=== PATIENT | male | born 1975 | race Caucasian/White ===

== ENCOUNTER → 2017-07-01 | Outpatient (CLI) | payer MEDICARE, BC ==
--- NOTE | 2017-07-01 09:40 | RADIOLOGY REPORT (SQ) ---
EXAM DESCRIPTION: MRI CERVICAL SPINE WITHOUT COMPLETED DATE/TIME: 07/01/2017 8:46 am REASON FOR STUDY: M54.13 RADICULOPATHY, CERVICOTHORACIC REGION M54.13 RADICULOPATHY, CERVICOTHORACI C REGION COMPARISON: Cervical myelogram 02/21/2016 TECHNIQUE: Sagittal and Axial imaging includes T1, T2, STIR and gradient echo sequences. LIMITATIONS: None. FINDINGS: ALIGNMENT: Normal. VERTEBRAE: Intact. BONE MARROW: Normal. No marrow replacement or reactive changes. DISCS: Post fusion at C5-6 and C6-7 HARDWARE: Anterior fixation plate with anchoring screws in the C5, C6, and C7 vertebral bodies. CORD AND BASE OF BRAIN: Normal in size and signal intensity. SOFT TISSUES: No soft tissue masses. C1-C2: No significant spinal stenosis. C2-C3: No significant spinal stenosis or exit foraminal stenosis. C3-C4: No significant spinal stenosis or exit foraminal stenosis. C4-C5: No significant spinal stenosis or exit foraminal stenosis. C5-C6: No significant spinal stenosis or exit foraminal stenosis. C6-C7: Mild to moderate right foraminal narrowing from facet and uncovertebral hypertrophy. No centr al canal or left foraminal stenosis. C7-T1: No significant spinal stenosis or exit foraminal stenosis. UPPER THORACIC: Incompletely imaged. No significant spinal stenosis or exit foraminal stenosis. OTHER: No other significant finding. IMPRESSION: Post cervical fusion at C5-6 and C6-7. No significant central canal stenosis. Mild moderate right foraminal narrowing at C6-7. TECHNICAL DOCUMENTATION: JOB ID: [id number] [email or web address]- All Rights Reserved
== END ==
LOC: RAD 08:33
PROVIDERS: ATTEND Physician Assistant
DX: M54.13 Radiculopathy, cervicothoracic region (principal); M96.1 Postlaminectomy syndrome, not elsewhere classified
CPT/HCPCS: 72141

== ENCOUNTER → 2018-11-26 | Outpatient (CLI) | payer BC, MEDICARE ==
--- NOTE | 2018-11-26 08:47 | RADIOLOGY REPORT (SQ) ---
EXAM DESCRIPTION: MRI CERVICAL SPINE WITHOUT COMPLETED DATE/TIME: 11/26/2018 7:54 am REASON FOR STUDY: CERVICAL DISC DISORDER (M50.9), OTHER ABN FINDING ON MS SYSTEM M50.90 CERVICAL DI SC DISORDER, UNSP, UNSPECIFIED CERVICAL RE M48.00 SPINAL STENOSIS, SITE UNSPECIFIED R93.7 ABNORMAL FINDINGS ON DIAGNOSTIC IMAGING OF PRT MS SYS COMPARISON: 07/01/[address] cervical spine 02/21/2016 TECHNIQUE: Sagittal and Axial imaging includes T1, T2, STIR and gradient echo sequences. LIMITATIONS: None. FINDINGS: ALIGNMENT: Normal. VERTEBRAE: Intact. BONE MARROW: Normal. No marrow replacement or reactive changes. DISCS: Post fusion from C5 through C7. Decreased T2 weighted intervertebral disc signal at C2-3, C3- 4, and C4-5. HARDWARE: Post anterior fusion at C5-6 and C6-7 with hardware CORD AND BASE OF BRAIN: Normal in size and signal intensity. SOFT TISSUES: No soft tissue masses. C1-C2: No significant spinal stenosis. C2-C3: No significant spinal stenosis or exit foraminal stenosis. C3-C4: No significant spinal stenosis or exit foraminal stenosis. C4-C5: No significant spinal stenosis or exit foraminal stenosis. C5-C6: Post fusion. No central or foraminal stenosis. C6-C7: Post fusion. No central or foraminal stenosis. C7-T1: No significant spinal stenosis or exit foraminal stenosis. There is bilateral facet arthropat hy with mild bony spurring at the C7-T1 level. UPPER THORACIC: Incompletely imaged. No significant spinal stenosis or exit foraminal stenosis. OTHER: No other significant finding. IMPRESSION: No significant central or foraminal encroachment. TECHNICAL DOCUMENTATION: JOB ID: [id number]- All Rights Reserved Reading location - IP/workstation name: [email or web address]
== END ==
LOC: RAD 06:57
PROVIDERS: ATTEND Nurse Practitioner
DX: M50.30 Other cervical disc degeneration, unspecified cervical region (principal); M48.00 Spinal stenosis, site unspecified; R93.7 Abnormal findings on diagnostic imaging of other parts of musculoskeletal system
CPT/HCPCS: 72141